=== PATIENT | female | born 1960 | race Caucasian/White ===

== ENCOUNTER 2021-09-28 08:56 | Emergency (ER) | payer OTHER, SELFPAY ==
--- NOTE | ~2021-09-28 | XR_ITS ---
EXAMINATION: XR chest 2V DATE: 09/28/2021 09:39 INDICATION: Shortness of breath, cough and fever TECHNIQUE: frontal and lateral views of the chest were obtained. COMPARISON: None FINDINGS: Mild hyperexpansion of lungs. Mild opacities at the lung bases, right greater than left. There are so me bronchial wall thickening in the infrahilar region on the lateral projection. No pleural effusion or pneumothorax. The cardiomediastinal silhouette is normal. Cholecystectomy clips in the right upper quadrant. Mild S-shaped scoliosis with thoracic dextro scoliosis and thoracolumbar levoscoliosis. Mi ld spondylosis. Plate and screw fixation for lower cervical anterior spinal fusion. IMPRESSION: 1. Bibasilar opacities, right greater than left, which could represent atelectasis, bronchitis, pneum onia or some combination thereof. Reviewed, dictated and finalized at location A. IMPRESSION: 1. Bibasilar opacities, right greater than left, which could represent atelecta sis, bronchitis, pneumonia or some combination thereof.
[2021-09-28 09:04] VITALS: BP 113/64; PULSE 101; RESP 16; TEMP 36.3; O2SAT 92
--- NOTE | 2021-09-28 09:17 | ED.URI ---
HPI - URI/Sore Throat General Chief Complaint: Upper Respiratory Infection Stated Complaint: Cough/Shortness of Breath/Fever Time Seen by Provider: 09/28/21 09:23 Source: patient and RN notes reviewed Mode of arrival: ambulatory Limitations: no limitations History of Present Illness HPI Narrative: 60-year-old female presented for complaint of cough and sore throat since yesterday. Last night felt warm and has been sweaty today. Patient is a chronic 1 pack/day smoker. She denies increased shortness of breath, wheezing, fatigue, chest pain or swelling. She has not taken anything for symptoms. She is not vaccinated for COVID. She has not taken a COVID test and states I do not have COVID. Endorses sick contacts. She states she usually uses a nebulizer treatment but has been out of the medicine. MD elicited complaint: cough Related Data Allergies Allergy/AdvReac Type Severity Reaction Status Date / Time Penicillins Allergy Hives Verified 09/28/21 09:16 prednisone Allergy Swelling Verified 09/28/21 09:16 Review of Systems Review of Systems: CONSTITUTIONAL: Endorses sweats, fever EYES: Denies visual changes, redness, or discharge ENT: Denies rhinorrhea, congestion, sinus pain, otalgia, sore throat CARDIOVASCULAR: Denies chest pain, palpitations, edema RESPIRATORY: Reports cough, post nasal drainage. Denies dyspnea GASTROINTESTINAL: Denies abdominal pain, nausea, vomiting, diarrhea SKIN: Denies rash or itching MUSCULOSKELETAL:denies myalgia NEUROLOGIC: Denies headache Exam Narrative: GENERAL: Ill-appearing, nontoxic EYES: conjunctivae clear ENT: Mucous membranes moist. TM pearly ozuna with dull light reflex bilaterally; no tragal tenderness. CHEST: Clear and diminished to auscultation, breath sounds equal. No wheezing, rhonchi, rales, or stridor. No respiratory distress, speaks in full sentences. HEART: Regular rate and rhythm. No murmur heard. SKIN: Warm, dry, no rash. NEURO: Alert and oriented x3. Course Course Emergency Course: Patient is aware of diagnosis, understands and agrees to treatment plan. Anticipatory guidance given. Patient agrees to follow-up as directed and is aware of reasons to seek care at the emergency department. Portions of this record may have been created with voice recognition software Level of Care: Express Care Visit Vital Signs Vital signs: Vital Signs Temperature 97.3 F L 09/28/21 09:04 Pulse Rate 101 H 09/28/21 09:04 Respiratory Rate 16 09/28/21 09:04 Blood Pressure 113/64 09/28/21 09:04 Pulse Oximetry 92 09/28/21 09:04 Oxygen Delivery Room Air 09/28/21 09:04 Temperature 97.3 F L 09/28/21 09:04 Pulse Rate 101 H 09/28/21 09:04 Respiratory Rate 16 09/28/21 09:04 Blood Pressure 113/64 09/28/21 09:04 Pulse Oximetry 92 09/28/21 09:04 Oxygen Delivery Room Air 09/28/21 09:04 reviewed MDM - URI/Sore Throat MDM Narrative Medical decision making narrative: cxr results reviewed with pt. Advised antibiotic and steroid. Pt refused the steroid and requested only Z-pack stating it works 'the best.' She is not wheezing significantly so she is advised to f/u with pcp. Differential Diagnosis Differential diagnosis: Likely upper respiratory infection, sinusitis and viral infection Imaging Data Radiologist's impression: Ordering Physician: Radha Nowak APRN Date of Service: 09/28/21 Procedure(s): XR chest 2V Accession Number(s): [id number] cc: Radha Nowak APRN; Fransisco, Mark Guerrero MD~ EXAMINATION: XR chest 2V DATE: 09/28/2021 09:39 INDICATION: Shortness of breath, cough and fever TECHNIQUE: frontal and lateral views of the chest were obtained. COMPARISON: None FINDINGS: Mild hyperexpansion of lungs. Mild opacities at the lung bases, right greater than left. There are some bronchial wall thickening in the infrahilar region on the lateral projection. No pleural effusion or pneumothorax. The cardiomediastinal silhouette i
== END 2021-09-28 10:09 | disposition home or self-care (01) ==
PROVIDERS: Emergency Provider Nurse Practitioner Family; PCP Internal Medicine
DX: J22 Unspecified acute lower respiratory infection (principal); Z28.310 Unvaccinated for COVID-19
CPT/HCPCS: 71046; 99213; G0463

== ENCOUNTER 2023-06-22 15:20 | Emergency (ER) | payer OTHER, SELFPAY ==
[2023-06-22 15:25] VITALS: BP 147/86; PULSE 91; RESP 16; TEMP 35.9; O2SAT 100
--- NOTE | 2023-06-22 15:53 | ED.GENADULT ---
HPI - General Adult General Chief complaint: Upper Respiratory Infection Stated complaint: Sore Throat Source: patient, RN notes reviewed and old records reviewed Mode of arrival: ambulatory Limitations: no limitations History of Present Illness HPI narrative: 62-year-old female presents to [facility] with cup put of sore throat, general myalgia, left ear pain that started Thursday. Patient not taking anything for symptoms. Patient states always has cough. Related Data Allergies Allergy/AdvReac Type Severity Reaction Status Date / Time Penicillins Allergy Hives Verified 09/28/21 09:16 prednisone Allergy Swelling Verified 09/28/21 09:16 Review of Systems Constitutional: Constitutional: Reports no additional constitutional complaints, Reports body ache(s), Denies chills, Denies fatigue, Denies fever(s) and Denies headache(s) Eyes: Eyes: Reports no additional eye complaints and Denies blurry vision ENT: Reports system reviewed and no additional complaints, except as documented, Denies vertigo, Denies dizziness, Denies ear discharge, Reports otalgia, Denies facial pain, Denies headache(s), Denies nasal congestion, Denies nasal discharge, Denies sinus pain, Denies sinus pressure and Reports sore throat Cardiovascular: Cardiovascular: Reports no additional cardiovascular complaints, Denies chest pain, Denies chest pain at rest, Denies rapid heart rate and Denies dyspnea Respiratory: Respiratory: Reports no additional respiratory complaints, Denies chest congestion, Denies cough, Denies pain on inspiration, Denies pain with cough and Denies dyspnea Gastrointestinal: Gastrointestinal: Denies abdominal pain, Denies diarrhea, Denies nausea and Denies vomiting Integumentary/Breasts: Skin/Breast: Denies rash Neurologic: Reports system reviewed and no additional complaints, except as documented, Denies vertigo, Denies dizziness and Denies headache(s) Endocrine: Endocrine: Denies fatigue PMFSH Comments At the time of my signature, I reviewed and agree with the nursing past medical, surgical, social, and family history. There is no relevant family history pertinent to the patient complaint. Exam Const: General: cooperative, healthy appearing, no acute distress and well nourished Nutritional Appearance: well nourished Orientation/consciousness: patient oriented x3 Limitations: no limitations HENMT: Head: normal to inspection and normocephalic Ears: external ears normal, EAC's normal, mastoids normal and TM abnormal bulging on the left and erythematous on the left Face/Nose/Sinus: normal facial exam Face and sinus: normal facial exam Mouth: Yes Normal oral and palatal mucosa present, Yes oropharynx normal and Yes moist mucous membranes Throat: tonsils normal, uvula midline, normal tonsils, no peritonsillar masses, posterior oropharynx abnormal erythema, no postnasal drainage and no uvular edema Eyes: General: appearance normal, both eyes and all related structures Sclera: sclerae normal Pupils: Equal, round and reactive pupils present Resp: Effort & Inspection: normal respiratory effort, able to speak in complete sentences, no audible wheezes, no cough, no respiratory distress and no retractions Auscultation: clear to auscultation bilaterally, no crackles, no rales, no rhonchi and no wheezes Cardio: Rate: regular rate Rhythm: regular rhythm Skin: General skin exam: normal color and no rashes or lesions noted Neuro: General: patient oriented x3 Cranial nerves: Yes Equal, round and reactive pupils present Psych: Appearance: grossly normal Mental Status: mental status grossly normal Speech and movement: Normal speech and movement present Affect: normal affect Course Course Emergency Course: Patient is aware of diagnosis, understands and agrees to treatment plan.? Anticipatory guidance given.? Patient agrees to follow-up as directed and is aware of reasons to seek care at the emergency department. Some parts of this dictat
== END 2023-06-22 16:01 | disposition home or self-care (01) ==
PROVIDERS: Emergency Provider Registered Nurse; PCP Internal Medicine
DX: H66.002 Acute suppurative otitis media without spontaneous rupture of ear drum, left ear (principal)
CPT/HCPCS: 87081; 87880; 99213; G0463